=== PATIENT | female | born 1995 | race Caucasian/White ===

== ENCOUNTER 2020-09-24 20:55 | Emergency (ER) | payer OTHER, MEDICAID, SELFPAY ==
[2020-09-24 20:59] VITALS: BP 146/98; PULSE 106; RESP 18; TEMP 36.3; O2SAT 100
--- NOTE | 2020-09-24 21:32 | ED.NECK ---
HPI - Neck Pain/Injury General Chief Complaint: Neck Pain/Injury Stated Complaint: Neck pain Time Seen by Provider: 09/24/20 21:07 History of Present Illness HPI Narrative: Patient is a 25-year-old female who presents ER with right-sided neck pain. Ongoing for the last week. Began after trying to pull a box her dog away from her dog. Reports pain steadily grew after the incident. Reports if she turns her head to the left side she will feel a pinch and then will get some numbness going down her right arm but if she turns her head back to midline it alleviates. She is tried no oral medication Related Data Home Medications Medication Instructions Recorded Confirmed alprazolam 0.5 mg tablet 0.5 mg PO QHS PRN 07/28/20 07/28/20 Allergies Allergy/AdvReac Type Severity Reaction Status Date / Time [id number] Antimigraine Allergy Unknown Verified 09/24/20 21:33 Agents Review of Systems Review of Systems: All systems reviewed & are unremarkable except as noted in HPI and below Constitutional: Constitutional: Denies chills and Denies fever(s) Musculoskeletal: Musculoskeletal: Denies back pain, Denies myalgias, Denies arthralgias, Denies joint swelling and Reports muscle cramps Neurologic: Denies headache(s), Denies focal weakness and Reports numbness (Intermittent) PMFSH Past Medical History Medical History Anxiety Migraine Miscarriage Surgical History Surgical History H/O dilation and curettage History of tonsillectomy Hx of bilateral breast reduction surgery Family History Family History Father Diabetes mellitus Depression Mother Depression Thyroid disease Grandparent Diabetes mellitus Depression Social History Social History Smoking status: Never smoker Alcohol intake: never Substance use: never Exam Narrative: Exam Narrative: GENERAL: Well-appearing, well-nourished, and in no acute distress. HEAD: Normocephalic, atraumatic. NECK: Supple. Tender palpation in the paraspinal musculature at level of C6 on the right side. No midline tenderness. Full range of motion. Mild discomfort over the right trapezius muscle as well. HEART: Tachycardic and regular. Normal peripheral pulses. EXTREMITIES: Normal range of motion. No edema. NEURO: No focal deficits. Alert and oriented x3. PSYCH: Normal mood and affect. Course Course Emergency Course: Discussed treatment with anti-inflammatories as well as muscle x-rays. Patient verbalized understanding. Unable to reproduce numbness in the right side with head manipulation. Discharge home. Vital Signs Vital signs: Vital Signs Temperature 97.3 F L 09/24/20 20:59 Pulse Rate 106 H 09/24/20 20:59 Respiratory Rate 18 09/24/20 20:59 Blood Pressure 146/98 H 09/24/20 20:59 Pulse Oximetry 100 09/24/20 20:59 Temperature 97.3 F L 09/24/20 20:59 Pulse Rate 106 H 09/24/20 20:59 Respiratory Rate 18 09/24/20 20:59 Blood Pressure 146/98 H 09/24/20 20:59 Pulse Oximetry 100 09/24/20 20:59 Discharge Plan Discharge Clinical Impression: Muscle strain, Cervical radiculopathy Patient Disposition: Home, Self-Care Condition: Stable Instructions: Cervical Radiculopathy (ED) Additional Instructions: Return the ER if you suffer any injury, you have new numbness or tingling in the arm that is persistent, you develop fever over 104 ?F, you have additional concerns. Take medications as instructed. Make sure to take your anti-inflammatory medication with food so that you do not develop a stomach ulcer. If you develop acid reflux please discontinue the medication. Prescriptions: New cyclobenzaprine 10 mg tablet 10 mg PO TID PRN (Reason: muscle spasm) Qty: 20 RF: 0 naproxen 500 mg tablet
[2020-09-24] MEDS: CYCLOBENZAPRINE HCL 10 MG TABLET PO (21:34)
[2020-09-24] MEDS: NAPROXEN 500 MG TABLET PO (21:34)
== END 2020-09-24 21:57 | disposition home or self-care (01) ==
PROVIDERS: Emergency Provider Emergency Medicine
DX: S16.1XXA Strain of muscle, fascia and tendon at neck level, initial encounter (principal); M54.12 Radiculopathy, cervical region; F41.9 Anxiety disorder, unspecified; X50.9XXA Other and unspecified overexertion or strenuous movements or postures, initial encounter
CPT/HCPCS: 99283; A9270

== ENCOUNTER 2021-06-30 13:29 | Emergency (ER) | payer OTHER, MEDICAID, SELFPAY ==
[2021-06-30 13:41] VITALS: BP 133/100; PULSE 136; RESP 18; TEMP 36.8; O2SAT 100
[2021-06-30 13:52] LABS: Add Urine Microscopic? NO; Appearance Urine Clear (Clear); Bilirubin Urine Negative (Negative); Blood Urine Negative (Negative); Color Urine Yellow (Yellow); Glucose Urine UA Negative (Negative); Ketones Urine Negative (Negative); Leukocyte Esterase Ur Negative LEU/UL (Negative); Nitrate Urine Negative (Negative); Protein Urine Negative (Negative); Specific Grav Ur 1.011 (1.001-1.035); Urobilinogen Urine Negative mg/dL (<2.0)
--- NOTE | 2021-06-30 14:36 | ED.BACK ---
HPI - Back Pain/Injury General Chief Complaint: Urogenital-Female Stated Complaint: right back pain Time Seen by Provider: 06/30/21 13:39 Source: patient History of Present Illness HPI Narrative: Patient presents with right-sided back pain. She has had symptoms for approximately 1 week getting progressively worse. She attempted some Excedrin at home without relief of her symptoms she called her primary care doctor and was referred to the ER for evaluation. Her pain is primarily on her right lower back constant worse with bending over and rotation no significant radiation. She has any urinary symptoms denies any vomiting or diarrhea she denies any fevers denies any trauma to the area. Reports she was resting when her symptoms came on. She denies any bowel or bladder incontinence denies any IV drug use denies any recent spinal instrumentation no major changes in weight. Related Data Home Medications Medication Instructions Recorded Confirmed alprazolam 0.5 mg tablet 0.5 mg PO QHS PRN 07/28/20 07/28/20 Allergies Allergy/AdvReac Type Severity Reaction Status Date / Time [id number] Antimigraine Allergy Unknown Verified 06/30/21 13:31 Agents Review of Systems Review of Systems: CONSTITUTIONAL: Denies fever, chills, or sweats. EYES: Denies visual changes, redness, or discharge. ENT: Denies rhinorrhea, congestion, sore throat, or otalgia. CARDIOVASCULAR: Denies chest pain, palpitations, or edema. RESPIRATORY: Denies cough or dyspnea. GASTROINTESTINAL: Denies abdominal pain, nausea, vomiting, or diarrhea. GENITOURINARY: Denies dysuria or hematuria. SKIN: Denies rash or itching. MUSCULOSKELETAL: Denies joint pain, or myalgia. NEUROLOGIC: Denies headache, numbness, dizziness, or weakness. PSYCHIATRIC: Denies anxiety or depression. All systems reviewed & are unremarkable except as noted in HPI and below PMFSH Past Medical History Medical History Anxiety Migraine Miscarriage Surgical History Surgical History H/O dilation and curettage History of tonsillectomy Hx of bilateral breast reduction surgery Family History Family History Father Diabetes mellitus Depression Mother Depression Thyroid disease Grandparent Diabetes mellitus Depression Social History Social History Smoking status: Never smoker Alcohol intake: never Substance use: never Exam Narrative: GENERAL: Well-appearing, well-nourished, and in no acute distress. HEAD: Normocephalic, atraumatic. EYES: PERRLA and EOMI. ENT: Nares clear, no rhinorrhea or epistaxis. Mucous membranes moist. NECK: Supple. No masses. No JVD BACK: Patient with moderate tenderness on the right lower paraspinal muscles around L1 to the L4 for no midline tenderness EXTREMITIES: Normal range of motion. No edema. SKIN: Warm, dry, no rash. NEURO: No focal deficits. Patient ambulates without difficulty alert and oriented x3. PSYCH: Normal mood and affect. Course Reevaluation(s) Reevaluation #1: Patient is resting comfortably results and plan reviewed with patient patient is comfortable with outpatient plan. Supportive therapies while in the ER. Date: 06/30/21 Time: 14:43 Vital Signs Vital signs: Vital Signs Temperature 36.8 C 06/30/21 13:41 Pulse Rate 136 H 06/30/21 13:41 Respiratory Rate 18 06/30/21 13:41 Blood Pressure 133/100 H 06/30/21 13:41 Pulse Oximetry 100 06/30/21 13:41 Temperature 36.8 C 06/30/21 13:41 Pulse Rate 92 06/30/21 14:56 Respiratory Rate 18 06/30/21 14:56 Blood Pressure 126/92 H 06/30/21 14:56 Pulse Oximetry 100 06/30/21 14:56 MDM - Back Pain/Injury MDM Narrative Medical decision making narrative: H&P as above, vs initially with tachycardia 136. Patient ports she is very anxio
[2021-06-30 14:56] VITALS: BP 126/92; PULSE 92; RESP 18; O2SAT 100
== END 2021-06-30 14:57 | disposition home or self-care (01) ==
PROVIDERS: Emergency Provider Emergency Medicine; PCP Family Medicine
DX: M54.50 Low back pain, unspecified (principal); F41.9 Anxiety disorder, unspecified
CPT/HCPCS: 81003; 81025; 99283

== ENCOUNTER 2021-11-18 21:55 | Emergency (ER) | payer OTHER, SELFPAY ==
--- NOTE | 2021-11-18 22:44 | PC.NURSE ---
no answer for triage at [id number]
== END 2021-11-18 21:56 | disposition left against medical advice (07) ==
LOC: ANHED 22:57
PROVIDERS: PCP Family Medicine
DX: Z53.21 Procedure and treatment not carried out due to patient leaving prior to being seen by health care provider (principal)
CPT/HCPCS: 99199

== ENCOUNTER 2022-08-13 15:01 | Emergency (ER) | payer OTHER, MEDICAID, SELFPAY ==
--- NOTE | ~2022-08-13 | XR_ITS ---
EXAM: XR ankle LT min 3V DATE: 08/13/2022 15:22 HISTORY: injuryabout 1 week ago rolled ankl/lateral pain . COMPARISON: None available. FINDINGS: Normal mineralization. No fracture or dislocation. Fairly well-circumscribed lytic lesion in the medial talus, no aggressive features. Joint spaces are maintained. No erosion or periosteal ch gustavo. Soft tissues within normal limits. Large ankle joint effusion. IMPRESSION: No acute fracture or dislocation. Large ankle joint effusion. Osteochondral lesion versus degenerative subchondral cysts in the medial talar dome, this could be confirmed with outpatient ank le MRI, particularly if there is medial ankle joint pain. Reviewed, dictated and finalized at location K. IMPRESSION: No acute fracture or dislocation. Large ankle joint effusion. Osteo chondral lesion versus degenerative subchondral cysts in the medial talar dome, this could be confirmed with outpatient ankle MRI, particularly if there is me dial ankle joint pain.
[2022-08-13 15:12] VITALS: BP 138/83; PULSE 90; RESP 16; TEMP 36.2; O2SAT 100
--- NOTE | 2022-08-13 15:29 | ED.LOWEXIN ---
HPI - Extremity Injury (Lower) General Chief Complaint: Extremity Injury, Lower Stated Complaint: Lt Ankle Pain Time Seen by Provider: 08/13/22 15:16 Source: patient and RN notes reviewed Mode of arrival: ambulatory Limitations: no limitations History of Present Illness HPI Narrative: Patient presents today complaining of left ankle injury. She rolled it while stepping from a stair on to her yd 1 week ago and states symptoms have not been improving since that time. She does report some tingling in her great toe. Currently rates her pain 5/10 and has been taking Aleve and using ice without relief. Pain increases with movement and weight-bearing. Related Data Home Medications Medication Instructions Recorded Confirmed alprazolam 0.5 mg tablet (Xanax) 0.5 mg PO QHS PRN Anxiety 07/28/20 08/13/22 metformin 500 mg tablet 1,000 mg PO DAILY 08/13/22 08/13/22 Allergies Allergy/AdvReac Type Severity Reaction Status Date / Time [id number] Antimigraine Allergy Unknown Verified 08/13/22 15:30 Agents Review of Systems Review of Systems: CONSTITUTIONAL: Denies body aches, fever, chills, or sweats. EYES: Denies visual changes, redness, or discharge. ENT: Denies rhinorrhea, congestion, sore throat, or otalgia. CARDIOVASCULAR: Denies chest pain, palpitations, or edema. RESPIRATORY: Denies cough or dyspnea. GASTROINTESTINAL: Denies abdominal pain, nausea, vomiting, or diarrhea. GENITOURINARY: Denies dysuria or hematuria. SKIN: Denies rash, itching, or wounds. MUSCULOSKELETAL: Denies back pain. + left ankle injury NEUROLOGIC: Denies headache, numbness, or weakness.+ tingling of great toe PSYCH: Denies depression or anxiety. [facility] Past Medical History Medical History Anxiety Migraine Miscarriage Surgical History Surgical History H/O dilation and curettage History of tonsillectomy Hx of bilateral breast reduction surgery Family History Family History Father Diabetes mellitus Depression Mother Depression Thyroid disease Grandparent Diabetes mellitus Depression Social History Social History Smoking status: Never smoker Alcohol intake: never Substance use: never Comments At time of signature, I have reviewed and agree with nursing past medical, surgical, social and family history unless otherwise noted. Please see nursing chart for further information. There is no relevant family history pertinent to the presenting complaint Exam Narrative: GENERAL: Well-appearing, well-nourished, and in no acute distress. HEAD: Normocephalic, atraumatic. EYES: EOMI. No redness or drainage. Conjunctivae normal. ENT: Mucous membranes pink and moist. NECK: Normal AROM. CHEST: No respiratory distress. EXTREMITIES: Left ankle: Tenderness in edema to the lateral room ankle including the malleolus extending to the anterior ankle. No tenderness to the foot. No edema to the foot. Distal sensation intact. Capillary refill normal. Pedal pulse normal. Full range of motion of the toes. Full AROM of the ankle with increased pain in all directions. SKIN: Warm, dry, no rash. Capillary refill normal. Normal skin turgor. NEURO: No focal deficits. Alert and oriented x3. Gait steady. PSYCH: Normal affect. No signs of depression or anxiety. Course Course Level of Care: Express Care Visit Vital Signs Vital signs: Vital Signs Temperature 97.1 F L 08/13/22 15:12 Pulse Rate 90 08/13/22 15:12 Respiratory Rate 16 08/13/22 15:12 Blood Pressure 138/83 08/13/22 15:12 Pulse Oximetry 100 08/13/22 15:12 Oxygen Delivery Room Air 08/13/22 15:12 Temperature 97.1 F L 08/13/22 15:12 Pulse Rate 90 08/13/22 15:12 Respiratory Rate 16 08/13/22 1
== END 2022-08-13 15:50 | disposition home or self-care (01) ==
PROVIDERS: Emergency Provider Nurse Practitioner; PCP Family Medicine
DX: S93.402A Sprain of unspecified ligament of left ankle, initial encounter (principal); X50.9XXA Other and unspecified overexertion or strenuous movements or postures, initial encounter; F41.9 Anxiety disorder, unspecified
CPT/HCPCS: 73610; 99213; G0463

== ENCOUNTER → 2022-09-04 09:27 | Outpatient (CLI) | payer OTHER, MEDICAID, SELFPAY ==
--- NOTE | ~2022-09-04 | MR_ITS ---
EXAMINATION: MR ankle LT wo con DATE: 09/04/2022 10:02 INDICATION: Left ankle pain. Disorder of bone, unspecified. TECHNIQUE: Magnetic resonance imaging (MRI) of the left ankle was performed without intravenous contr ast. Sequences included sagittal PD-weighted FS FSE, sagittal PD-weighted FSE, coronal PD-weighted FS FSE, coronal PD-weighted FSE, axial PD-weighted FS FSE, and axial PD-weighted FSE. COMPARISON: Left ankle radiographs 08/13/2022 FINDINGS: Medial ankle ligaments: There are changes of prior sprain of the deltoid ligament characterized by thickening and increased s ignal involving the superficial component. The deep component of the deltoid ligament is normal. Lateral ankle ligaments: There are changes of lateral ankle sprain characterized increased signal and anterior talofibular lig ament, calcaneofibular ligament, and anterior tibiofibular ligament. Posterior talofibular ligament a nd posterior tibiofibular ligaments are normal. Tendons: The anterior and medial ankle tendons are normal. The peroneal tendons are normal. Achilles tendon is normal. Plantar fascia: Normal. Bones/other: There is an osteochondral lesion of medial talar dome measuring 1.5 cm anterior to posterior by 7 mm right to left. No unstable fragment. Fluid: There is an ankle joint effusion. IMPRESSION: 1. Osteochondral lesion of medial talar dome. No unstable osteochondral fragment. 2. Ankle joint effusion. 3. Changes of prior medial and lateral ankle sprains. Reviewed, dictated and finalized at location A. IMPRESSION: 1. Osteochondral lesion of medial talar dome. No unstable osteochondral fragmen t. 2. Ankle joint effusion. 3. Changes of prior medial and lateral ankle sprains.
== END ==
PROVIDERS: PCP Orthopaedic Surgery; Visit Provider Orthopaedic Surgery
DX: M89.9 Disorder of bone, unspecified (principal); M25.472 Effusion, left ankle
CPT/HCPCS: 73721

== ENCOUNTER 2023-06-15 11:43 | Emergency (ER) | payer OTHER, SELFPAY ==
--- NOTE | ~2023-06-15 | XR_ITS ---
Clinical Indication: Chest tightness PA and lateral views of the chest: Comparison: None Findings: The lungs are clear, without evidence of focal consolidation or pleural effusion. Cardiome diastinal silhouette is within normal limits. Bones and soft tissues are unremarkable. Impression: Normal chest. Reviewed, dictated and finalized at location . Impression: Normal chest.
--- NOTE | 2023-06-15 11:44 | ECG_ITS ---
Measurements Intervals [place] Rate: 102 P: 50 SD: 134 QRS: 13 QRSD: 101 T: 23 QT: 329 QTc: 429 Interpretive Statements SINUS TACHYCARDIA POSSIBLE LEFT ATRIAL ENLARGEMENT BORDERLINE ST ABNORMALITY- ANT/HIGH LAT LEADS BORDERLINE ECG NO PREVIOUS ECG AVAILABLE FOR COMPARISON Electronically Signed On 06-15-2023 11:52:18 CDT by Daniel Jordan D.O.
[2023-06-15 11:59] LABS: Basophils Absolute Auto 0.1 K/mm3 (0.0-0.1); Basophils Percent Auto 0.6 % (0.2-1.2); Eosinophils Absolute Auto 0.3 K/mm3 (0-0.3); Eosinophils Percent Auto 2.9 % (0-4.4); Hematocrit 44.4 % (37.0-47.0); Hemoglobin 14.4 g/dL (12.0-15.0); Immature Granulocyte Absolute 0.02 K/mm3 (0.00-0.031); Immature Granulocyte Percent A 0.2 % (0-0.5); Lymphocytes Absolute Auto 2.18 K/mm3 (0.9-3.2); Lymphocytes Percent Auto 24.9 % (18.3-44.2); Mean Corpuscular HGB Conc 32.4 g/dl (32-36); Mean Corpuscular Hemoglobin 28.9 pg (26-34); Monocytes Absolute Auto 0.6 K/mm3 (0.1-0.6); Monocytes Percent Auto 7.2 % (2.6-8.5); Neutrophils Absolute Auto 5.6 K/mm3 (1.3-6.7); Neutrophils Percent Auto 64.2 % (45.5-73.1); Platelet Count Result 350 k/mm3 (150-375); Red Blood Count 4.99 M/mm3 (4.2-5.4); Red Cell Distribution Width 13.7 % (11.5-14.5); White Blood Count 8.7 K/mm3 (4.5-10.0)
[2023-06-15 12:04] VITALS: BP 141/90; PULSE 88; RESP 18; TEMP 36.7; O2SAT 98
[2023-06-15 12:10] LABS: Alanine Aminotransferase 30 U/L (6-35); Albumin Level 4.3 g/dL (3.5-5.1); Alkaline Phosphatase 79 U/L (38-126); Anion Gap 4 mmol/L (8-16); Aspartate Amino Transferase 32 U/L (14-36); Bilirubin,Total 0.5 mg/dL (0.2-1.3); Blood Urea Nitrogen 10 mg/dL (7-17); Calcium 9.9 mg/dL (8.4-10.2); Carbon Dioxide 29 mmol/L (22-30); Chloride 106 mmol/L (98-107); Estimated CRCL calculation 132 ml/min; Estimated Glomerular Filt Rate > 60; Glucose 106 mg/dL (65-110); Lipase 99 U/L (23-300); Sodium 139 mmol/L (137-145)
[2023-06-15 12:11] LABS: Prothrombin Time 13.2 Seconds (11.1-14.7)
[2023-06-15 12:12] LABS: Partial Thromboplastin Time 25.8 Seconds (22.3-36.8)
[2023-06-15 12:23] LABS: Troponin I < 0.012 ng/mL (0.000-0.034)
--- NOTE | 2023-06-15 13:44 | ED.CHESTPAIN ---
HPI - Chest Pain General Chief Complaint: Chest Pain Stated Complaint: chest tightness/cold/B arm numbness/htn Source: patient Mode of arrival: ambulatory Limitations: no limitations History of Present Illness HPI narrative: Patient is a 27-year-old female who presents the ED with report of chest tightness. Reports having intermittent chest tightness for the last 3-4 days, worse at night. Pain left sided, radiates slightly into her left arm. She has also had intermittent dizziness, cold sensation. She followed up with her psychiatrist today and was referred to the ED for further evaluation. Patient does feel very anxious and panicked with the symptoms. She has tried taking her Xanax and states it does improve the symptoms. She also reports mild shortness of breath, denies pain with inspiration. denies dyspnea with exertion, pain or swelling in lower extremities. denies cough or cold symptoms. Denies previous issues with CAD. She does have history of high blood pressure, but is not a medication with this. Related Data Home Medications Medication Instructions Recorded Confirmed alprazolam 0.5 mg tablet (Xanax) 0.5 mg PO QHS PRN Anxiety 07/28/20 08/16/22 metformin 500 mg tablet 1,000 mg PO DAILY 08/13/22 08/16/22 Allergies Allergy/AdvReac Type Severity Reaction Status Date / Time [id number] Antimigraine Allergy Unknown Verified 08/16/22 14:52 Agents Review of Systems Review of Systems: CONSTITUTIONAL: Denies fever, chills, or sweats. ENT: Denies rhinorrhea, congestion, sore throat. CARDIOVASCULAR: See HPI RESPIRATORY: See HPI. GASTROINTESTINAL: Denies abdominal pain, nausea, vomiting MUSCULOSKELETAL: Denies back pain NEUROLOGIC: Denies headache, dizziness, numbness, or weakness. PSYCH: See HPI All systems reviewed & are unremarkable except as noted in HPI and below PMFSH Past Medical History Medical History Anxiety Migraine Miscarriage Surgical History Surgical History H/O dilation and curettage History of tonsillectomy Hx of bilateral breast reduction surgery Family History Family History Father Diabetes mellitus Depression Mother Depression Thyroid disease Grandparent Diabetes mellitus Depression Social History Social History Smoking status: Never smoker Alcohol intake: never Substance use: never Lack of Transportation: No Lack of Food: Never True Current Housing: I Have Housing Concerned About Future Housing: No Difficulty Paying Gas/Electric Bills: No Difficulty Paying for Meds: No Currently Unemployed: No Education: Bachelor's Degree Difficulty w/ Childcare or Family Care: No Exam Narrative: GENERAL: Well appearing, Morbidly obese with BMI of 41.4, non-toxic, in no acute distress. HEAD: Normocephalic, atraumatic. RESPIRATORY: Airway patent, respirations nonlabored. Clear to auscultation bilaterally, no rales, rhonchi, wheezing. No focal lung sounds. CARDIOVASCULAR: Regular rate and rhythm without murmurs, rubs, or gallops. MUSCULOSKELETAL: Moves all extremities. No gross deformities. Tenderness to palpation along left upper chest wall, reproducing pain. No lower extremity edema. No calf tenderness. SKIN: Warm, dry, normal color. NEURO: A&O X3. Speech clear. Cranial nerves II-XII grossly intact. Steady gait. No ataxic movements. PSYCHIATRIC: Appropriate mood and affect. Normal interaction. Course Vital Signs Vital signs: Vital Signs Temperature 98.1 F 06/15/23 12:04 Pulse Rate 88 06/15/23 12:04 Respiratory Rate 18 06/15/23 12:04 Blood Pressure 141/90 H 06/15/23 12:04 Pulse Oximetry 98 06/15/23 12:04 Temperature 98.1 F 06/15/23 12:04 Pulse Rate 93 06/15/23 13
[2023-06-15 13:51] VITALS: BP 132/90; PULSE 93; RESP 18; O2SAT 100
[2023-06-15 14:04] VITALS: O2SAT 100
[2023-06-15 14:04] LABS: D Dimer < 0.27 ug/mL (<0.48)
== END 2023-06-15 14:31 | disposition home or self-care (01) ==
LOC: ANHED 14:19
PROVIDERS: Preventive Medicine Aerospace Medicine; Emergency Provider Physician Assistant; PCP Emergency Medicine
DX: R07.89 Other chest pain (principal); F41.9 Anxiety disorder, unspecified; E66.01 Morbid (severe) obesity due to excess calories; Z68.41 Body mass index [BMI] 40.0-44.9, adult
CPT/HCPCS: 36415; 71046; 80053; 83690; 84484; 85025; 85380; 85610; 85730; 93005; 99284

== ENCOUNTER 2023-06-20 08:25 | Emergency (ER) | payer OTHER, SELFPAY ==
--- NOTE | ~2023-06-20 | US_ITS ---
EXAMINATION: US right upper quadrant DATE: 06/20/2023 09:51 INDICATION: Right upper quadrant abdominal pain. TECHNIQUE: Multiple grayscale and Doppler ultrasound images of the abdomen were obtained. COMPARISON: None FINDINGS: The visualized portions of the head, body, and tail of the pancreas are normal. There is di ffuse hepatic steatosis. There is normal flow in main portal vein. The gallbladder is normal in size. No gallstones or gallbladder wall thickening. There was no sonographic Ledesma sign. The common duct is normal and measures 3 mm. IMPRESSION: 1. Diffuse hepatic steatosis. Reviewed, dictated and finalized at location A.
[2023-06-20 08:39] VITALS: BP 146/95; PULSE 111; RESP 18; TEMP 36.8; O2SAT 95
--- NOTE | 2023-06-20 08:54 | ED.ABDPAIN ---
HPI - Abdominal Pain General Chief Complaint: Abdominal Pain Stated Complaint: abd pain, decreased PO intake Time Seen by Provider: 06/20/23 08:37 History of Present Illness HPI narrative: Pt presents with epigastric abdominal pain for several days. Pt says it radiates to her back. Pt seen here last week for CP and had negative cardiac work up. Pt seen by PCP and got labs and recently started on synthroid. Pt denies constipation or diarrhea. Pt is nauseated. Related Data Home Medications Medication Instructions Recorded Confirmed alprazolam 0.5 mg tablet (Xanax) 0.5 mg PO QHS PRN Anxiety 07/28/20 08/16/22 metformin 500 mg tablet 1,000 mg PO DAILY 08/13/22 08/16/22 Allergies Allergy/AdvReac Type Severity Reaction Status Date / Time [id number] Antimigraine Allergy Unknown Verified 08/16/22 14:52 Agents Review of Systems Review of Systems: All systems reviewed & are unremarkable except as noted in HPI and below PMFSH Past Medical History Medical History Anxiety Migraine Miscarriage Surgical History Surgical History H/O dilation and curettage History of tonsillectomy Hx of bilateral breast reduction surgery Family History Family History Father Diabetes mellitus Depression Mother Depression Thyroid disease Grandparent Diabetes mellitus Depression Social History Social History Smoking status: Never smoker Alcohol intake: never Substance use: never Lack of Transportation: No Lack of Food: Never True Current Housing: I Have Housing Concerned About Future Housing: No Difficulty Paying Gas/Electric Bills: No Difficulty Paying for Meds: No Currently Unemployed: No Education: Bachelor's Degree Difficulty w/ Childcare or Family Care: No Exam Const: General: healthy appearing and no acute distress Nutritional Appearance: obese Orientation/consciousness: patient oriented x3 Limitations: no limitations Eyes: EOM: EOMs intact bilaterally Resp: Effort & Inspection: normal respiratory effort Auscultation: clear to auscultation bilaterally Cardio: Rate: regular rate Rhythm: regular rhythm GI: GI Palp: Yes Soft to palpation and Yes Tenderness to palpation present (GI) (epgastric and ruq mild) Auscultation: normal bowel sounds Skin: General skin exam: normal color Rashes: no rashes Wounds: no wounds Neuro: General: patient oriented x3, moves all extremities and CN's II-XI intact bilaterally Speech: normal speech Extrem: General: normal to inspection and no clubbing, cyanosis or edema Psych: Mental Status: mental status grossly normal Affect: normal affect Attitude: cooperative Course Vital Signs Vital signs: Vital Signs Temperature 98.3 F 06/20/23 08:39 Pulse Rate 111 H 06/20/23 08:39 Respiratory Rate 18 06/20/23 08:39 Blood Pressure 146/95 H 06/20/23 08:39 Pulse Oximetry 95 06/20/23 08:39 Temperature 98.3 F 06/20/23 08:39 Pulse Rate 80 06/20/23 10:39 Respiratory Rate 16 06/20/23 10:39 Blood Pressure 128/86 06/20/23 10:39 Pulse Oximetry 99 06/20/23 10:39 MDM - Abdominal Pain MDM Narrative Medical decision making narrative: pt has epigastric pain for several days. will check labs and sono of gb, labs and son ok. Pt feels some relief from [place] and pepcid here. will send home on prevacid and pepcid. Lab Data 06/20/23 09:08 06/20/23 09:08 Labs: Lab Results 06/20/23 Range/Units 09:08 WBC 8.4 (4.5-10.0) K/mm3 RBC 5.47 H (4.2-5.4) M/mm3 Hgb 15.6 H (12.0-15.0) g/dL Hct 48.4 H (37.0-47.0) % MCV 88.5 (80-100) fl MCH 28.5 (26-34) pg MCHC 32.2 (32-36) g/dl RDW 13.2 (11.5-14.5) % Plt Count 378 H (150-3
[2023-06-20] MEDS: MAG HYDROX/AL HYDROX/SIMETH 30 ML UDC PO (09:08)
[2023-06-20] MEDS: FAMOTIDINE 20 MG/2 ML VIAL IV PUSH (09:08)
[2023-06-20 09:17] LABS: Basophils Percent Auto 0.5 % (0.2-1.2); Eosinophils Absolute Auto 0.2 K/mm3 (0-0.3); Eosinophils Percent Auto 2.9 % (0-4.4); Hematocrit 48.4 % (37.0-47.0); Hemoglobin 15.6 g/dL (12.0-15.0); Immature Granulocyte Absolute 0.02 K/mm3 (0.00-0.031); Immature Granulocyte Percent A 0.2 % (0-0.5); Lymphocytes Absolute Auto 1.81 K/mm3 (0.9-3.2); Lymphocytes Percent Auto 21.6 % (18.3-44.2); Mean Corpuscular HGB Conc 32.2 g/dl (32-36); Mean Corpuscular Hemoglobin 28.5 pg (26-34); Mean Corpuscular Volume 88.5 fl (80-100); Mean Platelet Volume 10.3 fl (7.4-10.4); Monocytes Absolute Auto 0.6 K/mm3 (0.1-0.6); Neutrophils Absolute Auto 5.7 K/mm3 (1.3-6.7); Neutrophils Percent Auto 67.8 % (45.5-73.1); Platelet Count Result 378 k/mm3 (150-375); Red Blood Count 5.47 M/mm3 (4.2-5.4); Red Cell Distribution Width 13.2 % (11.5-14.5); White Blood Count 8.4 K/mm3 (4.5-10.0)
[2023-06-20 09:27] LABS: Partial Thromboplastin Time 27.1 Seconds (22.3-36.8); Prothrombin Time 13.3 Seconds (11.1-14.7)
[2023-06-20 09:51] LABS: Alanine Aminotransferase 34 U/L (6-35); Albumin Level 4.8 g/dL (3.5-5.1); Alkaline Phosphatase 88 U/L (38-126); Anion Gap 9 mmol/L (4-12); Aspartate Amino Transferase 32 U/L (14-36); Bilirubin,Total 0.9 mg/dL (0.2-1.3); Blood Urea Nitrogen 9 mg/dL (7-17); Calcium 9.7 mg/dL (8.4-10.2); Carbon Dioxide 27 mmol/L (22-30); Chloride 104 mmol/L (98-107); Estimated CRCL calculation 117 ml/min; Estimated Glomerular Filt Rate > 60; Glucose 98 mg/dL (65-110); Lipase 75 U/L (23-300); Potassium 3.9 mmol/L (3.4-5.0); Sodium 140 mmol/L (137-145)
[2023-06-20 10:39] VITALS: BP 128/86; PULSE 80; RESP 16; O2SAT 99
== END 2023-06-20 10:54 | disposition home or self-care (01) ==
PROVIDERS: Emergency Provider Emergency Medicine; PCP Family Medicine
DX: K21.9 Gastro-esophageal reflux disease without esophagitis (principal); F41.9 Anxiety disorder, unspecified; K76.0 Fatty (change of) liver, not elsewhere classified; Z79.84 Long term (current) use of oral hypoglycemic drugs
CPT/HCPCS: 36415; 76705; 80053; 83690; 85025; 85610; 85730; 96374; 99284; A9270

== ENCOUNTER 2023-06-25 10:13 | Outpatient (CLI) | payer OTHER, SELFPAY ==
--- NOTE | ~2023-06-25 | MR_ITS ---
MRI of the brain Clinical History: Migraine headache Technique: Axial and sagittal T1-weighted images were acquired. These were followed by axial T2-weigh dru, diffusion weighted, gradient, and FLAIR images. Findings: No abnormal signal seen in the brain parenchyma. No acute infarct, intracranial hemorrhage, or mass lesion. Ventricles and subarachnoid spaces are unremarkable. Orbits are unremarkable. Paranasal sinuses and m astoid air cells are clear. Major intracranial flow voids are intact. Sagittal midline structures are intact. IMPRESSION: Normal exam. Reviewed, dictated and finalized at location M. IMPRESSION: Normal exam.
== END 2023-06-25 10:14 ==
PROVIDERS: PCP Family Medicine; Visit Provider Family Medicine
DX: G43.811 Other migraine, intractable, with status migrainosus (principal)
CPT/HCPCS: 70551

== ENCOUNTER 2023-06-28 07:40 | Emergency (ER) | payer OTHER, SELFPAY ==
--- NOTE | ~2023-06-28 | XR_ITS ---
EXAMINATION: XR abdomen/kub 1V DATE: 06/28/2023 08:31 INDICATION: Nausea. TECHNIQUE: A supine view of the abdomen on 2 radiographs was obtained. COMPARISON: None. FINDINGS: There are no dilated loops of bowel. There is a small volume of stool in the colon. No visi ble urolithiasis. IMPRESSION: 1. Normal bowel gas pattern. Reviewed, dictated and finalized at location A.
[2023-06-28 07:53] VITALS: BP 127/82; PULSE 86; RESP 18; TEMP 36.3; O2SAT 98
--- NOTE | 2023-06-28 07:56 | ED.GENADULT ---
HPI - General Adult General Chief complaint: Nausea/Vomiting/Diarrhea Stated complaint: N/V x 2 weeks (return visit) Time Seen by Provider: 06/28/23 07:45 History of Present Illness HPI narrative: patient is a 27-year-old female who presents ER for nausea and vomiting. She has been seen here multiple times over last couple of weeks. Initially it was for anxiety and chest pain and then it was for GERD. She has been taking Prevacid and famotidine reports her heart burn has improved. She reports however that her dry heaves have turned into actual vomiting over last couple days. She reports that she has been constipated but she was able to strain and have small BM this morning. She thinks she may be dehydrated but has recently been drinking more water. She has tried no laxatives. She has no abdominal pain just some non specific fullness. No urinary frequency urgency. Related Data Home Medications Medication Instructions Recorded Confirmed alprazolam 0.5 mg tablet (Xanax) 0.5 mg PO QHS PRN Anxiety 07/28/20 08/16/22 metformin 500 mg tablet 1,000 mg PO DAILY 08/13/22 08/16/22 Allergies Allergy/AdvReac Type Severity Reaction Status Date / Time [id number] Antimigraine Allergy Unknown Verified 08/16/22 14:52 Agents Review of Systems Review of Systems: All systems reviewed & are unremarkable except as noted in HPI and below Constitutional: Constitutional: Reports no additional constitutional complaints ENT: Reports system reviewed and no additional complaints, except as documented Cardiovascular: Cardiovascular: Reports no additional cardiovascular complaints Respiratory: Respiratory: Reports no additional respiratory complaints Gastrointestinal: Gastrointestinal: Reports abdominal pain, Reports constipation, Denies diarrhea, Reports nausea and Reports vomiting Genitourinary: Genitourinary: Reports no additional female genitourinary complaints [facility] Past Medical History Medical History Anxiety Migraine Miscarriage Surgical History Surgical History H/O dilation and curettage History of tonsillectomy Hx of bilateral breast reduction surgery Family History Family History Father Diabetes mellitus Depression Mother Depression Thyroid disease Grandparent Diabetes mellitus Depression Social History Social History Smoking status: Never smoker Alcohol intake: never Substance use: never Lack of Transportation: No Lack of Food: Never True Current Housing: I Have Housing Concerned About Future Housing: No Difficulty Paying Gas/Electric Bills: No Difficulty Paying for Meds: No Currently Unemployed: No Education: Bachelor's Degree Difficulty w/ Childcare or Family Care: No Exam Narrative: GENERAL: Well-appearing, morbidly obese, and in no acute distress. HEAD: Normocephalic, atraumatic. ENT: Mucous membranes moist. CHEST: Clear to auscultation. No respiratory distress. HEART: Regular rate and rhythm. Normal peripheral pulses. ABDOMEN: Soft, nontender, nondistended. EXTREMITIES: Normal range of motion. No edema. SKIN: Warm, dry, no rash. NEURO: Alert and oriented x3. PSYCH: Normal mood and affect. Course Course Emergency Course: workup unremarkable. Patient informed normal lab work. X-ray without significant constipation. Patient received Zofran x2. Discharge. Vital Signs Vital signs: Vital Signs Temperature 97.4 F L 06/28/23 07:53 Pulse Rate 86 06/28/23 07:53 Respiratory Rate 18 06/28/23 07:53 Blood Pressure 127/82 06/28/23 07:53 Pulse Oximetry 98 06/28/23 07:53 Oxygen Delivery Room Air 06/28/23 07:53 Temperature 98 F 06/28/23 10:11 Pulse Rate 92 06/28/23 10:11 Respiratory
[2023-06-28 08:11] LABS: Basophils Percent Auto 0.4 % (0.2-1.2); Eosinophils Absolute Auto 0.2 K/mm3 (0-0.3); Eosinophils Percent Auto 3.4 % (0-4.4); Hematocrit 46.6 % (37.0-47.0); Immature Granulocyte Absolute 0.02 K/mm3 (0.00-0.031); Immature Granulocyte Percent A 0.3 % (0-0.5); Lymphocytes Absolute Auto 1.62 K/mm3 (0.9-3.2); Lymphocytes Percent Auto 24.3 % (18.3-44.2); Mean Corpuscular HGB Conc 32.2 g/dl (32-36); Mean Corpuscular Hemoglobin 28.5 pg (26-34); Mean Corpuscular Volume 88.6 fl (80-100); Mean Platelet Volume 10.5 fl (7.4-10.4); Monocytes Absolute Auto 0.5 K/mm3 (0.1-0.6); Monocytes Percent Auto 7.6 % (2.6-8.5); Neutrophils Absolute Auto 4.3 K/mm3 (1.3-6.7); Platelet Count Result 327 k/mm3 (150-375); Red Blood Count 5.26 M/mm3 (4.2-5.4); Red Cell Distribution Width 13.6 % (11.5-14.5); White Blood Count 6.7 K/mm3 (4.5-10.0)
[2023-06-28 08:17] LABS: Appearance Urine Clear (Clear); Bacteria Urine Rare /hpf; Bilirubin Urine Negative (Negative); Blood Urine 1+ (Negative); Color Urine Yellow (Yellow); Glucose Urine UA Negative (Negative); Ketones Urine Negative (Negative); Leukocyte Esterase Ur Negative LEU/UL (Negative); Nitrate Urine Negative (Negative); Non Pathogenic Casts 0-2; Protein Urine Negative (Negative); RBC Urine 0-2 /hpf (0-2); Specific Grav Ur 1.008 (1.001-1.035); Squamous Epithelial Cell Urine Occasional /hpf (Few); Urobilinogen Urine 0.2 mg/dL (<2.0); WBC Urine 0-5 /hpf (0-3)
[2023-06-28 08:24] LABS: Add Urine Microscopic? YES
--- NOTE | 2023-06-28 08:26 | PC.NURSE ---
PT to Xray
[2023-06-28 08:27] LABS: Alanine Aminotransferase 30 U/L (6-35); Albumin Level 4.5 g/dL (3.5-5.1); Alkaline Phosphatase 73 U/L (38-126); Anion Gap 7 mmol/L (4-12); Aspartate Amino Transferase 31 U/L (14-36); Bilirubin,Total 0.6 mg/dL (0.2-1.3); Blood Urea Nitrogen 12 mg/dL (7-17); Calcium 9.6 mg/dL (8.4-10.2); Carbon Dioxide 27 mmol/L (22-30); Chloride 106 mmol/L (98-107); Estimated CRCL calculation 131 ml/min; Estimated Glomerular Filt Rate > 60; Glucose 112 mg/dL (65-110); Lipase 99 U/L (23-300); Potassium 4.5 mmol/L (3.4-5.0); Sodium 140 mmol/L (137-145)
[2023-06-28] MEDS: ONDANSETRON INJ 4 MG/2 ML VIAL IV PUSH ×2 (08:37→10:24)
[2023-06-28] MEDS: SODIUM CHLORIDE 0.9% IV 1,000 ML 999 ML IV CONT (08:37)
[2023-06-28 10:11] VITALS: BP 150/96; PULSE 92; RESP 18; TEMP 36.6; O2SAT 100
== END 2023-06-28 10:53 | disposition home or self-care (01) ==
PROVIDERS: Emergency Provider Emergency Medicine; PCP Family Medicine
DX: R11.2 Nausea with vomiting, unspecified (principal); F41.9 Anxiety disorder, unspecified; E66.01 Morbid (severe) obesity due to excess calories; Z68.41 Body mass index [BMI] 40.0-44.9, adult; Z79.84 Long term (current) use of oral hypoglycemic drugs
CPT/HCPCS: 36415; 74018; 80053; 81001; 81025; 83690; 85025; 96361; 96374; 96376; 99284; J2405; J7030

== ENCOUNTER 2023-11-07 13:02 | Outpatient (CLI) | payer OTHER, SELFPAY ==
--- NOTE | ~2023-11-07 | MR_ITS ---
EXAMINATION: MRA brain wo con DATE: 11/07/2023 14:41 INDICATION: Vertigo. Migraine headache. TECHNIQUE: Magnetic resonance angiography (MRA) of the brain was performed without intravenous contra st with T1-weighted SPGR by the 3D [id number] technique. Maximum intensity projection 3D-reconstr uctions were obtained. COMPARISON: Brain MRI 06/25/2023 FINDINGS: The vertebral arteries are codominant. There is no significant stenosis of basilar artery or the post erior cerebral arteries. The posterior communicating arteries are normal. There is no significant hubert nosis of the intracranial internal carotid arteries or anterior or middle cerebral arteries. Anterior communicating artery is normal. There is no aneurysm. IMPRESSION: 1. Normal MRA. Reviewed, dictated and finalized at location A. IMPRESSION: 1. Normal MRA.
--- NOTE | ~2023-11-07 | MR_ITS ---
EXAMINATION: MRA neck wo con DATE: 11/07/2023 14:44 INDICATION: Vertigo. Migraine headache. TECHNIQUE: Magnetic resonance angiography (MRA) of the neck was performed without intravenous contras t. COMPARISON: None. FINDINGS: There is no significant stenosis of the vertebral arteries. There is no significant plaque in the pro ximal internal carotid arteries. There is 0% stenosis of the proximal right internal carotid artery r elative to normal distal artery lumen diameter (NASCET criteria). There is 0% stenosis of the proxim al left internal carotid artery relative to normal distal artery lumen diameter. IMPRESSION: 1. 0% stenosis of the proximal internal carotid arteries relative to normal distal artery lumen diame ters (NASCET criteria). Reviewed, dictated and finalized at location A. IMPRESSION: 1. 0% stenosis of the proximal internal carotid arteries relative to normal dis marysol artery lumen diameters (NASCET criteria).
--- NOTE | ~2023-11-07 | MR_ITS ---
EXAMINATION: MR brain/brain stem wo con DATE: 11/07/2023 14:41 INDICATION: Vertigo. TECHNIQUE: Magnetic resonance imaging (MRI) of the brain and brainstem was performed without intraven ous contrast. COMPARISON: Brain MRI 06/25/2023 FINDINGS: There is no intracranial hemorrhage, acute infarction, or abnormal intracranial mass lesion . The ventricles are normal in size. The paranasal sinuses are clear. The orbits are normal. The mast oid air cells are normal. IMPRESSION: 1. Normal brain. Reviewed, dictated and finalized at location A. IMPRESSION: 1. Normal brain.
--- NOTE | ~2023-11-07 | MR_ITS ---
EXAMINATION: MR cervical spine wo con DATE: 11/07/2023 14:44 INDICATION: Vertigo TECHNIQUE: Magnetic resonance imaging (MRI) of the cervical spine was performed without intravenous c ontrast. Sequences included sagittal T2-weighted FSE, sagittal T2-weighted FS FSE, sagittal T1-weight ed FSE, axial MERGE and axial T2-weighted FSE. COMPARISON: None FINDINGS: Bone alignment is normal. Vertebral body heights are normal. T1 hyperintense hemangioma at T2. Bone marrow signal intensity is otherwise normal. Intervertebral disc heights are normal. Cord signal inte nsity is normal. Cervical soft tissues are unremarkable. The following disc levels are specifically d iscussed: C2-C3: The disc does not extend beyond the endplate margin. There is no uncovertebral joint osteoarth ritis. There is mild left facet joint osteoarthritis. There is mild left neural foraminal stenosis. T here is no central canal stenosis. C3-C4: Disc is mildly bulging. There is no uncovertebral joint osteoarthritis. There is no facet join t osteoarthritis. There is no neural foraminal stenosis. There is minimal central canal stenosis. C4-C5: Disc is mildly bulging. There is mild left uncovertebral joint osteoarthritis. There is mild l eft facet joint osteoarthritis. There is mild left neural foraminal stenosis. There is minimal centra l canal stenosis. C5-C6: Disc is mildly bulging with superimposed annular fissure and left foraminal zone disc protrusi on. There is no uncovertebral joint osteoarthritis. There is mild bilateral facet joint osteoarthriti s. There is mild neural foraminal stenosis. There is mild central canal stenosis. C6-C7: The disc does not extend beyond the endplate margin. There is no uncovertebral joint osteoarth ritis. There is mild left facet joint osteoarthritis. There is no neural foraminal stenosis. There is no central canal stenosis. C7-T1: The disc does not extend beyond the endplate margin. There is no uncovertebral joint osteoarth ritis. There is mild bilateral facet joint osteoarthritis. There is no neural foraminal stenosis. The re is no central canal stenosis. IMPRESSION: 1. Mild cervical spondylosis. Reviewed, dictated and finalized at location A.
== END 2023-11-07 13:03 ==
LOC: GOSHIMG 13:04
PROVIDERS: PCP Family Medicine
DX: M43.02 Spondylolysis, cervical region (principal); R42 Dizziness and giddiness; R20.2 Paresthesia of skin
CPT/HCPCS: 70544; 70547; 70551; 72141